=== PATIENT | female | born 1985 | race Caucasian/White ===

== ENCOUNTER 2018-06-16 00:37 | Emergency (ER) | payer BC ==
--- NOTE | 2018-06-16 00:45 | EDM.PDOC ---
ED HPI GENERAL MEDICAL PROBLEM - General Chief Complaint: Back Pain or Injury Stated Complaint: LOWER BACK PAIN Time Seen by Provider: 06/16/18 00:44 Source of Information: Reports: Patient - History of Present Illness INITIAL COMMENTS - FREE TEXT/NARRATIVE: 33 years old female patient presented with a chief complaint of low back pain started 5 days ago. Patient does not remember any trauma or injury but she said pain started after she had intercourse was her boyfriend and wonder if this is related. No previous history of back pain. Pain is worse with bending, twisting. No radiation. Denies any loss of control of urine or stool. Denies any weakness or numbness in her legs. Denies any fever. Denies any urinary symptom. As any blood in urine or stool. Denies any chest pain or shortness breath. She went to chiropractor yesterday and they adjusted her lower back but she still have pain. Has been taking ibuprofen 600 mg 3 or 4 times a day that seem to be helping to some extent also heat packs a seems to be helping a lot. Onset: Today back Pain Score (Numeric/FACES): 7 - Related Data Allergies Allergy/AdvReac Type Severity Reaction Status Date / Time No Known Allergies Allergy Verified 06/16/18 00:51 Home Meds: Home Meds Omeprazole 20 mg PO DAILY 06/16/18 [History] ED ROS GENERAL - Review of Systems Review Of Systems: ROS reveals no pertinent complaints other than HPI. ED EXAM,LOWER BACK PAIN/INJURY - Physical Exam Exam: See Below Exam Limited By: No Limitations General Appearance: Alert, No Apparent Distress Ears: Normal External Exam Nose: Normal Inspection Throat/Mouth: Normal Inspection Head: Atraumatic, Normocephalic Neck: Normal Inspection, Supple Respiratory/Chest: No Respiratory Distress, Lungs Clear, Normal Breath Sounds, No Accessory Muscle Use, Chest Non-Tender. No: Respiratory Distress Cardiovascular: Normal Peripheral Pulses, Regular Rate, Rhythm, No Edema, No Gallop, No JVD, No Murmur GI/Abdominal: Normal Bowel Sounds, Soft, Non-Tender, No Organomegaly, No Distention, No Abnormal Bruit, No Mass Back Exam: Normal Inspection, Decreased Range of Motion, Muscle Spasm, Paraspinal Tenderness. No: CVA Tenderness (R), CVA Tenderness (L), Vertebral Tenderness Extremities: Normal Inspection, Non-Tender, No Pedal Edema Neurological: Alert, Normal Mood/Affect, No Motor/Sensory Deficits, Oriented x 3 , Straight Leg Raise (L), Straight Leg Raise (R). No: Saddle Anesthesia Psychiatric: Normal Affect, Normal Mood Skin Exam: Warm, Dry, Intact, No Rash Course - Vital Signs Last Recorded V/S: Last Vital Signs Temp 36.4 C 06/16/18 00:49 Pulse 98 06/16/18 00:49 Resp 16 06/16/18 00:49 BP 147/77 H 06/16/18 00:49 Pulse Ox 100 06/16/18 00:49 - Orders/Labs/Meds Labs: Laboratory Tests 06/16/18 Range/Units 01:18 Urine HCG, Qual Negative Meds: Medications Discontinued Medications Generic Name Dose Route Start Last Admin Trade Name Spring PRN Reason Stop Dose Admin Cyclobenzaprine HCl 10 mg 06/16/18 01:34 06/16/18 01:43 Flexeril PO 06/16/18 01:35 10 mg ONETIME ONE Administration Ketorolac Tromethamine 60 mg 06/16/18 01:34 06/16/18 01:42 Toradol IM 06/16/18 01:35 60 mg ONETIME ONE Administration - Re-Assessments/Exams Free Text/Narrative Re-Assessment/Exam: 06/16/18 01:55 Patient was seen and examined shortly after arrival. Stable. Negative test. This is most likely muscle strain/sprain. Given 60 mg IM Toradol and 10 mg oral Flexeril.symptoms improved. Advised to follow up closely with her primary doctor, possible referral for physical therapy. Continue heat packs. Continue to alternate Tylenol and ibuprofen. Advised not to drive or O. Machines been taking Flexeril. MRI of lower back if symptom does not improve. Come back if symptom worsen. Patient agrees with the plan. Stable for discharge. Departure - Departure Time of Disposition: 01:57 Disposition: Home, Self-Care 01 Condition: Good Clinical Impression: Low back pain - Discharge Information Instructions: Muscle Strain, [id number], Back Pain, Adult, [id number] Referrals: PCP,None [Primary Care Provider] - Forms: ED Department Discharge - Assessment/Plan Plan: Advised to follow up closely with her primary doctor, possible referral for physical therapy. Continue heat packs. Continue to alternate Tylenol and ibuprofen. Advised not to drive or O. Machines been taking Flexeril. MRI of lower back if symptom does not improve. Come back if symptom worsen. Patient agrees with the plan. Stable for discharge.
[2018-06-16] MEDS ORDERED: Ketorolac 60 MG/2 ML SDV IM ONE (01:34)
[2018-06-16] MEDS ORDERED: Cyclobenzaprine 10 MG Tab PO ONE (01:34)
== END 2018-06-16 02:15 | disposition home or self-care (01) ==
LOC: JP.ED 00:37
DX: M54.5 Low back pain (principal); Z79.899 Other long term (current) drug therapy
CPT/HCPCS: 81025; 96372; 99284; A9270; J1885

== ENCOUNTER 2018-09-23 11:44 | Emergency (ER) | payer BC ==
[2018-09-23] MEDS ORDERED: Bacitracin Oint 1 GM U/D Packet TOP ONE (12:05)
[2018-09-23] MEDS ORDERED: Diphtheria,Pertussis(Acell),Tetanus Vaccine 0.5 ML SDV IM ONE (12:08)
--- NOTE | 2018-09-23 12:18 | EDM.PDOC ---
ED HPI GENERAL MEDICAL PROBLEM - General Chief Complaint: Laceration Stated Complaint: FISH HOOK IN FOOT Time Seen by Provider: 09/23/18 12:00 Source of Information: Reports: Patient, Family History Limitations: Reports: No Limitations - History of Present Illness INITIAL COMMENTS - FREE TEXT/NARRATIVE: 33-year-old female with a fish hook embedded in her right foot. It occurred this morning when she stepped on the hook. Onset: Sudden Duration: Hour(s): (Within the last few hours) Location: Reports: Lower Extremity, Right - Related Data Allergies Allergy/AdvReac Type Severity Reaction Status Date / Time No Known Allergies Allergy Verified 09/23/18 12:09 Home Meds: Home Meds Omeprazole 20 mg PO DAILY 06/16/18 [History] FLUoxetine [PROzac] 10 mg PO DAILY 09/23/18 [History] Past Medical History HEENT History: Reports: Impaired Vision Psychiatric History: Reports: Suicide Attempt Social & Family History - Caffeine Use Caffeine Use: Reports: Coffee, Energy Drinks ED ROS GENERAL - Review of Systems Review Of Systems: See Below Constitutional: Denies: Fever, Chills Respiratory: Denies: Shortness of Breath Psychiatric: Reports: Anxiety ED EXAM, SKIN/RASH Exam: See Below Exam Limited By: No Limitations General Appearance: Alert, No Apparent Distress Respiratory/Chest: No Respiratory Distress Extremities: Other (Exam is otherwise limited to the right foot. The patient has one pratik of a trouble hook embedded into the medial aspect of the right foot near the MP joint.) Course - Vital Signs Last Recorded V/S: Last Vital Signs Temp 97.0 F 09/23/18 12:11 Pulse 78 09/23/18 12:11 Resp 22 H 09/23/18 12:11 BP 140/84 09/23/18 12:11 Pulse Ox 97 09/23/18 12:11 - Orders/Labs/Meds Orders: Active Orders 24 hr Category Date Time Status Vaccines to be Administered [RC] PER UNIT ROUTINE Care 09/23/18 12:08 Active Meds: Medications Discontinued Medications Generic Name Dose Route Start Last Admin Trade Name Freq PRN Reason Stop Dose Admin Bacitracin 1 dose 09/23/18 12:05 09/23/18 12:23 Bacitracin Oint 1 Gm TOP 09/23/18 12:06 1 dose ONETIME ONE Administration Diphtheria/Tetanus/Acell Pertussis 0.5 ml 09/23/18 12:08 09/23/18 12:30 Adacel IM 09/23/18 12:09 0.5 ml .ONCE ONE Administration Lidocaine HCl 5 ml 09/23/18 12:05 09/23/18 12:23 Xylocaine-Mpf 1% INJECT 09/23/18 12:06 5 ml ONETIME ONE Administration - Re-Assessments/Exams Free Text/Narrative Re-Assessment/Exam: 09/23/18 12:17 The area was sterilized with alcohol, infiltrated with a small amount of 1% lidocaine and the hook removed with a needle solis. A small amount of bacitracin and a Band-Aid was applied and the patient given a tetanus booster. She'll keep the wound clean while healing. Departure - Departure Time of Disposition: 12:52 Disposition: Home, Self-Care 01 Condition: Good Clinical Impression: Foreign body in skin - Discharge Information Instructions: Puncture Wound, [id number] Referrals: Azucena Akhtar CNM [Primary Care Provider] - Forms: ED Department Discharge Care Plan Goals: Keep wound clean and covered while healing. Recheck if concerns of infection or not healing satisfactorily. - My Orders Last 24 Hours: My Active Orders 09/23/18 12:08 Vaccines to be Administered [RC] PER UNIT ROUTINE - Assessment/Plan Last 24 Hours: My Active Orders 09/23/18 12:08 Vaccines to be Administered [RC] PER UNIT ROUTINE
== END 2018-09-23 12:45 | disposition home or self-care (01) ==
LOC: JP.ED 11:44
DX: S90.851A Superficial foreign body, right foot, initial encounter (principal); Z23 Encounter for immunization; W45.8XXA Other foreign body or object entering through skin, initial encounter; Z79.899 Other long term (current) drug therapy
CPT/HCPCS: 90471; 90715; 99282; J2001

== ENCOUNTER 2020-06-21 13:59 | Inpatient (IN) | payer BC ==
[2020-06-21] MEDS ORDERED: Misoprostol 50 MCG (1/2 of 100 MCG) Tab PO ONE ×3 (18:23→22:45)
[2020-06-21] MEDS ORDERED: Calcium Carbonate 500 MG Tab.Chew PO PRN (18:29)
[2020-06-21] MEDS ORDERED: Sodium Chloride 0.9% 10 ML Syringe FLUSH PRN (18:29)
[2020-06-21] MEDS ORDERED: Ondansetron 4 MG/2 ML SDV IV PRN (18:29)
--- NOTE | 2020-06-21 18:40 | PCM.LDHP ---
L&D History of Present Illness - General Date of Service: 06/21/20 Admit Problem/Dx: Patient Status Order with Admit Dx/Problem 06/21/20 18:29 Patient Status [ADT] Routine Admission Diagnosis/Problem Admission Diagnosis/Problem Term Source of Information: Patient History Limitations: Reports: No Limitations - History of Present Illness Introduction:: 06/21/20 35 yo came in this afternoon with possible SROM at home. She noticed when she woke up at 0830 that her underwear were wet. There was no moisture in the be d and she did not have any leaking down her legs. Each time she went to the bathroom she felt more moist than normal but still never had to wear a pad all day. She came in this afternoon and had a positive AmniSure. Contractions have not been consistent but contractions have been every few minutes. She rates them mild and feels them in her upper abdomen and some in her low back. No pooling of fluid. SVE is 180/-1, same as clinic check. We have been doing expectant management per patient request through the afternoon. She would like to avoid pitocin. We discussed and she agrees to oral cytotec. Risk of infection reviewed with expectant management. Labs: B positive blood type, rubella immune, all STI negative, UDS negative today, GBS negative. Timing/Duration: Reports: minutes: (1-7) Location, : Reports: Abdomen, Lower back Severity: Mild Improves with: Reports: None Worsens with: Reports: None - Related Data Allergies/Adverse Reactions: Allergies Allergy/AdvReac Type Severity Reaction Status Date / Time No Known Allergies Allergy Verified 09/23/18 12:09 Home Medications: Home Meds Omeprazole 20 mg PO DAILY 06/16/18 [History] FLUoxetine [PROzac] 10 mg PO DAILY 09/23/18 [History] Pnv No.95/Ferrous Fum/Folic AC [ Caplet] 1 tab PO DAILY 06/21/20 [History] busPIRone [Buspar] 15 mg PO DAILY 06/21/20 [History] Past Medical History HEENT History: Reports: Impaired Vision PATTERN [employer]IC History: Reports: : 1 Para: 0 LMP (Approximate): Psychiatric History: Reports: Anxiety, Depression, PTSD, Suicide Attempt - Infectious Disease History Infectious Disease History: Reports: Chicken Pox, Shingles - Past Surgical History Other HEENT Surgeries/Procedures: wears glasses Social & Family History - Tobacco Use Tobacco Use Status *Q: Former Tobacco User Used Tobacco, but Quit: Yes Month/Year Tobacco Last Used: October 2019 Second Hand Smoke Exposure: Yes - Caffeine Use Caffeine Use: Reports: Coffee - Recreational Drug Use Recreational Drug Use: Yes Recreational Drug Type: Reports: Marijuana/Hashish Recreational Drug Use Frequency: Socially H&P Review of Systems - Review of Systems: Review Of Systems: See Below General: Reports: No Symptoms HEENT: Reports: No Symptoms Pulmonary: Reports: No Symptoms Cardiovascular: Reports: No Symptoms Gastrointestinal: Reports: No Symptoms Genitourinary: Reports: No Symptoms Musculoskeletal: Reports: No Symptoms Skin: Reports: No Symptoms Psychiatric: Reports: No Symptoms Neurological: Reports: No Symptoms Hematologic/Lymphatic: Reports: No Symptoms Immunologic: Reports: No Symptoms L&D Exam - Exam Exam: See Below - Vital Signs Vital Signs: Last Vital Signs Temp 36.3 C 06/21/20 16:20 Pulse 65 06/21/20 16:20 Resp 16 06/21/20 16:20 BP 124/74 06/21/20 16:20 Pulse Ox 99 06/21/20 14:20 Weight: 78 kg - OB Specific Contraction Duration (sec): 40-90 Contraction Frequency (min): 2-5 Contraction Intensity: Mild Movement: Active Heart Tones: Present Heart Tones per Min: 130 Heart Rate (FHR) Variability: Moderate (6-25 bmp) Presentation: Vertex - Green Score Green Score Cervix Position: Midposition Green Score Consistency: Medium Green Score Effacement: >80% Green Score Dilation: 1-2 cm Green Score 's Station: -1 ,0 Green Score Total: 8 - Exam General: Alert, Oriented HEENT: PERRLA, Conjunctiva Clear, EOMI, Hearing Intact, Mucosa Moist & [place], Nares Patent, Normal Nasal Septum, Pupils Equal, Pupils Reactive Neck: Supple, Trachea Midline Lungs: Clear to Auscultation, Normal Respiratory Effort Cardiovascular: Regular Rate, Regular Rhythm GI/Abdominal Exam: Normal Bowel Sounds, Soft, Non-Tender, No Organomegaly, No Distention, No Abnormal Bruit, No Mass, Pelvis Stable Rectal Exam: Normal Exam, Normal Rectal Tone Genitourinary: Normal external exam, Normal bimanual exam, Cervical dilitation. No: Vaginal bleeding Back Exam: Normal Inspection, Full Range of Motion Extremities: Normal Inspection, Normal Range of Motion, Non-Tender, No Pedal Edema, Normal Capillary Refill Skin: Warm, Dry, Intact Neurological: Cranial Nerves Intact, Reflexes Equal Bilateral Psychiatric: Alert, Normal Affect, Normal Mood - Patient Data Lab Results Last 24 hrs: Laboratory Results - last 24 hr 06/21/20 06/21/20 06/21/20 Range/Units 14:08 14:12 15:40 WBC (4.5-11.0) K/uL RBC (3.30-5.50) M/uL Hgb (12.0-15.0) g/dL Hct (36.0-48.0) % MCV (80-98) fL MCH (27-31) pg MCHC (32-36) % Plt Count (150-400) K/uL Neut % (Auto) (36-66) % Lymph % (Auto) (24-44) % [place] % (Auto) (2-6) % Eos % (Auto) (2-4) % Baso % (Auto) (0-1) % Urine Color Yellow (YELLOW) Urine Appearance Slightly cloudy A (CLEAR) Urine pH 6.5 (5.0-8.0) Ur Specific [place] 1.020 (1.008-1.030) Urine Protein Negative (NEGATIVE) mg/dL Urine Glucose (UA) Negative (NEGATIVE) mg/dL Urine Ketones 15 H (NEGATIVE) mg/dL Urine Occult Blood Negative (NEGATIVE) Urine Nitrite Negative (NEGATIVE) Urine Bilirubin Negative (NEGATIVE) Urine Urobilinogen 0.2 (0.2-1.0) EU/dL Ur Leukocyte Esterase Negative (NEGATIVE) Urine RBC 0-5 (0-5) Urine WBC 0-5 (0-5) Ur Epithelial Cells Many Amorphous Sediment Occasional Urine Bacteria Few Urine Mucus Occasional Membrane Rupture Positive H (NEGATIVE) Urine Opiates Screen Negative (NEGATIVE) Ur Oxycodone Screen Negative (NEGATIVE) Urine Methadone Screen Negative (NEGATIVE) Ur Propoxyphene Screen Negative (NEGATIVE) Ur Barbiturates Screen Negative (NEGATIVE) Ur Tricyclics Screen Negative (NEGATIVE) Ur Phencyclidine Scrn Negative (NEGATIVE) Ur Amphetamine Screen Negative (NEGATIVE) U Methamphetamines Scrn Negative (NEGATIVE) Urine MDMA Screen Negative (NEGATIVE) U Benzodiazepines Scrn Negative (NEGATIVE) U Cocaine Metab Screen Negative (NEGATIVE) U Marijuana (THC) Screen Negative (NEGATIVE) SARS CoV-2 RNA Rapid ALESIA 06/21/20 06/21/20 Range/Units 16:00 16:59 WBC 10.8 (4.5-11.0) K/uL RBC 3.89 (3.30-5.50) M/uL Hgb 12.5 (12.0-15.0) g/dL Hct 36.0 (36.0-48.0) % MCV 93 (80-98) fL MCH 32 H (27-31) pg MCHC 35 (32-36) % Plt Count 170 (150-400) K/uL Neut % (Auto) 70 H (36-66) % Lymph % (Auto) 18 L (24-44) % [place] % (Auto) 10 H (2-6) % Eos % (Auto) 1 L (2-4) % Baso % (Auto) 0 (0-1) % Urine Color (YELLOW) Urine Appearance (CLEAR) Urine pH (5.0-8.0) Ur Specific [place] (1.008-1.030) Urine Protein (NEGATIVE) mg/dL Urine Glucose (UA) (NEGATIVE) mg/dL Urine Ketones (NEGATIVE) mg/dL Urine Occult Blood (NEGATIVE) Urine Nitrite (NEGATIVE) Urine Bilirubin (NEGATIVE) Urine Urobilinogen (0.2-1.0) EU/dL Ur Leukocyte Esterase (NEGATIVE) Urine RBC (0-5) Urine WBC (0-5) Ur Epithelial Cells Amorphous Sediment Urine Bacteria Urine Mucus Membrane Rupture (NEGATIVE) Urine Opiates Screen (NEGATIVE) Ur Oxycodone Screen (NEGATIVE) Urine Methadone Screen (NEGATIVE) Ur Propoxyphene Screen (NEGATIVE) Ur Barbiturates Screen (NEGATIVE) Ur Tricyclics Screen (NEGATIVE) Ur Phencyclidine Scrn (NEGATIVE) Ur Amphetamine Screen (NEGATIVE) U Methamphetamines Scrn (NEGATIVE) Urine MDMA Screen (NEGATIVE) U Benzodiazepines Scrn (NEGATIVE) U Cocaine Metab Screen (NEGATIVE) U Marijuana (THC) Screen (NEGATIVE) SARS CoV-2 RNA Rapid ALESIA Negative Result Diagrams: 06/21/20 16:00 - Problem List (1) SROM (spontaneous rupture of membranes) SNOMED Code(s): 762677180 ICD Code: ABP2834 - Status: Acute Current Visit: Yes (2) Term SNOMED Code(s): 31511737 ICD Code: Z34.90 - ENCNTR FOR SUPRVSN OF NORMAL , UNSP, UNSP TRIMESTER Status: Acute Current Visit: Yes Problem List Initiated/Reviewed/Updated: Yes Orders Last 24hrs: Active Orders 24 hr Category Date Time Status Patient Status [ADT] Routine ADT 06/21/20 18:29 Ordered Communication Order [RC] ASDIRECTED Care 06/21/20 18:29 Ordered Heart Tones [RC] PER UNIT ROUTINE Care 06/21/20 18:29 Ordered Notify Provider Vital Signs [RC] PRN Care 06/21/20 18:31 Ordered Notify Provider [RC] PRN Care 06/21/20 18:29 Ordered OB Check [OM.PC] Click to Edit Care 06/21/20 14:07 Ordered Up ad Lexi [RC] ASDIRECTED Care 06/21/20 18:29 Ordered VTE/DVT Education [RC] Click to Edit Care 06/21/20 18:31 Ordered Vital Signs [RC] PER UNIT ROUTINE Care 06/21/20 18:29 Ordered Regular Diet [DIET] Diet 06/21/20 Dinner Ordered Calcium Carbonate [Tums] Med 06/21/20 18:29 Ordered 1,000 mg PO Q2HR PRN Ondansetron [Zofran] Med 06/21/20 18:29 Ordered 4 mg IV Q4H PRN Sodium Chloride 0.9% [Saline Flush] Med 06/21/20 18:29 Ordered 10 ml FLUSH ASDIRECTED PRN fentaNYL [Sublimaze] Med 06/21/20 18:29 Ordered 100 mcg IVPUSH Q1H PRN miSOPROStoL [Cytotec] Med 06/21/20 18:32 Once 50 mcg PO ONETIME ONE DVT/VTE Prophylaxis Reflex [OM.PC] Routine Oth 06/21/20 18:29 Ordered Saline Lock Insert [OM.PC] Routine Oth 06/21/20 18:29 Ordered Resuscitation Status Routine Resus Stat 06/21/20 18:29 Ordered Medication Orders Calcium Carbonate/Glycine (Tums) 1,000 mg PO Q2HR PRN PRN Reason: Indigestion Fentanyl (Sublimaze) 100 mcg IVPUSH Q1H PRN PRN Reason: Pain (moderate 4-6) Ondansetron HCl (Zofran) 4 mg IV Q4H PRN PRN Reason: Nausea/Vomiting Sodium Chloride (Saline Flush) 10 ml FLUSH ASDIRECTED PRN PRN Reason: Keep Vein Open Assessment/Plan Comment:: 06/21/20 Assessment: 35 yo here with prelabor SROM of clear fluid at home, scant fluid Contractions every 1-5 currently, mild in intensity Category 1 tracing SVE /-1 GBS negative Plan: Prelabor rupture of membranes, no onset of labor 11 hours later Cytotec 50 mcg orally now, will see how things go and possibly repeat 25-50 mcg in 4 hours Anticipate Patient desires medication free delivery if possible but is open to options if needed
[2020-06-22] MEDS: fentaNYL 100 MCG/2 ML SDV IVPUSH PRN ×2 (03:29→04:46)
[2020-06-22] MEDS ORDERED: Lidocaine 1% 50 ML MDV ONE (04:37)
[2020-06-22] MEDS ORDERED: Methylergonovine 0.2 MG/1 ML Amp ONE (04:44)
[2020-06-22] MEDS ORDERED: Misoprostol 200 MCG Tab ONE (04:44)
[2020-06-22] MEDS ORDERED: Carboprost Tromethamine 250 MCG/1 ML Amp ONE (04:44)
[2020-06-22] MEDS ORDERED: Benzocaine 20% Top Spray 56 GM Bottle TOP ONE (05:39)
[2020-06-22] MEDS ORDERED: Witch Hazel Medicated Pads 100/Jar TOP PRN (05:39)
[2020-06-22] MEDS ORDERED: Lanolin 100% Cream 40 GM Tube TOP ONE (05:39)
[2020-06-22] MEDS ORDERED: Misoprostol 25 MCG (1/4 of 100 MCG) Tab PO ONE (05:47)
[2020-06-22] MEDS ORDERED: Methylergonovine 0.2 MG/1 ML Amp IM ONE (05:48)
[2020-06-22] MEDS ORDERED: Lidocaine 1% 20 ML MDV INJECT ONE (05:48)
[2020-06-22] MEDS ORDERED: Ibuprofen 200 MG Tab, 24 Tab Bulk Bottle PO PRN (06:12)
[2020-06-22] MEDS ORDERED: Acetaminophen 325 MG Tab, 50 Tab Bulk Bottle PO PRN (06:12)
--- NOTE | 2020-06-22 06:12 | PCM.DEL ---
L & D Note - General Info Date of Service: 06/22/20 Mother's Due Date: 07/04/20 - Delivery Note Labor: Spontaneous Cervical Ripening Method: Misoprostil Delivery Outcome: Livebirth Delivery Method: Spontaneous Vaginal Delivery-Single Infant Delivery Mode: Spontaneous Presentation: Left Occiput Anterior (CORRINE) Nuchal Cord: None Anesthesia Type: Nitrous Oxide (briefly used, then IV fantanyl x 1) Anesthetic: Lidocaine (Xylocaine) 1% Plain Local Anesthetic Volume: Other (8 cc) Amniotic Fluid Description: Clear Episiotomy Type: None Laceration: 2nd Degree, Labial (right) Suture type: Vicryl Suture size: 3-0 Placenta: Spontaneous, Manual Removal, Abnormal Cord: 3 Vessels Estimated Blood Loss: 700 Resuscitation Needed: Yes : Suctioned, Bulb Syringe, Stimulated, Warmed, Warmer Used Provider: Ebonie Degroot Score 1 min: 3 Score 5 min: 5 Score 10 min: 7 Post Delivery Events: Hemorrhage, Retained Placenta (questionable) Second Stage Interventions: Reports: Second Nurse Assessed Progress of Descent, Second Nurse Reviewed Contraction Pattern, Second Nurse Reviewed Heart Tones, Encouragement Given, Pushing Effectively, Pushing, Pulls Own Legs Back Delivery Comments (Free Text/Narrative):: 06/22/20 35 yo now delivered baby girl on 06/22/20 at 0438 am. She came in yesterday afternoon with SROM with scant clear fluid, likely a forebag or high leak. She did not have spontaneous labor so after expectant management for several hours we decided to use oral cytotec to help induce labor. She did not make any change with the first dose of 50 mcg po, although did start having stronger contractions. 4 hours after first dose a dose of 25 mcg was given orally. She had SROM with a large gush of clear fluid at 0130 when she rapidly started changing after that. She used nitrous, the tub, and then at 4-5 cm around 0330 she received IV fentanyl. She quickly went to complete and began pushing. She delivered a female infant in CORRINE position. Baby initially cried and was placed on mother chest. She then had apnea but would respond to stimulation. The cord was clamped after 30 seconds and baby was brought to the warmer, mother trickling quite a bit of blood at this time. Baby was apneic, poor tone, and HR of 80 with no respiratory effort at that time, PPV was initiated for 1 minute. She then cried on her own and quickly had a HR over 100. She had blow by for several minutes. She is now on RA and has saturations >95%, skin pink, nice tone and is nursing at breast. Apgars 3, 5, 7. Baby did have dips in the HR with pushing but recovered, poor respiratory effort was likely due to the Fentanyl given just an hour before . Placenta delivered at 0442 and appeared not intact. The placenta is very thin and friable, several lobes are torn from the membrane at delivery. Mother was given IV pitocin directly after baby was born. She was given an additional dose of fentanyl due to not having an epidural and with clean sterile gloves a sweep of the uterus was done x 3 although was too clamped down to get to the fundus, this was done due to excessive bleeding of unknown cause. A couple of small fragments with blood clots were removed, there is nothing felt to be adhered. Upon good inspection of the placenta after mother was stable I do feel placenta lobes were intact, just torn from their place. There is a 3 vessel cord. Mother was given rectal cytotec and Methergine IM in addition to the pitocin for the bleeding. Mother has a second degree perineal laceration that is repaired along with a right labial tear that is repaired. There are no cervical or vaginal lacerations. The cause of bleeding is unknown, could have been small fragments of placenta vs clots by the cervix causing the bleeding. Placenta sent to pathology. EBL is 700 ml with a starting hgb of 12.5. Mother and baby are stable and snuggling skin to skin. Baby is nursing. Labs done on baby to check for infection. Lungs clear so no xray done. Stages of labor: 1: 8640-1332 2: 3863-4099 3: 5566-1379 Induction Criteria - Green Score Green Score Dilation: 1-2 cm Green Score Effacement: >80% Green Score 's Station: -1 ,0 Green Score Consistency: Medium Green Score Cervix Position: Midposition Green Score Total: 8 Green Score Presenting Part: Reports: Cephalic - Augmentation Estimated Pelvis: Reports: Adequate Weight Estimated:: Reports: AGA Estimated Weight if LGA: 3.175 kg Reassuring Monitoring Strip: Yes Absence of Tachy Systole: Yes - General Info Date of Service: 06/22/20 Functional Status: Reports: Pain Controlled - Review of Systems General: Reports: No Symptoms HEENT: Reports: No Symptoms Pulmonary: Reports: No Symptoms Cardiovascular: Reports: No Symptoms Gastrointestinal: Reports: No Symptoms Genitourinary: Reports: No Symptoms Musculoskeletal: Reports: No Symptoms Skin: Reports: No Symptoms Neurological: Reports: No Symptoms Psychiatric: Reports: No Symptoms - Patient Data Vitals - Most Recent: Last Vital Signs Temp 35.9 C L 06/22/20 03:08 Pulse 65 06/22/20 03:08 Resp 18 06/22/20 03:08 BP 116/62 06/22/20 03:08 Pulse Ox 99 06/22/20 03:20 Weight - Most Recent: 78 kg Lab Results Last 24 Hours: Laboratory Results - last 24 hr 06/21/20 06/21/20 06/21/20 Range/Units 14:08 14:12 15:40 WBC (4.5-11.0) K/uL RBC (3.30-5.50) M/uL Hgb (12.0-15.0) g/dL Hct (36.0-48.0) % MCV (80-98) fL MCH (27-31) pg MCHC (32-36) % Plt Count (150-400) K/uL Neut % (Auto) (36-66) % Lymph % (Auto) (24-44) % [place] % (Auto) (2-6) % Eos % (Auto) (2-4) % Baso % (Auto) (0-1) % Urine Color Yellow (YELLOW) Urine Appearance Slightly cloudy A (CLEAR) Urine pH 6.5 (5.0-8.0) Ur Specific [place] 1.020 (1.008-1.030) Urine Protein Negative (NEGATIVE) mg/dL Urine Glucose (UA) Negative (NEGATIVE) mg/dL Urine Ketones 15 H (NEGATIVE) mg/dL Urine Occult Blood Negative (NEGATIVE) Urine Nitrite Negative (NEGATIVE) Urine Bilirubin Negative (NEGATIVE) Urine Urobilinogen 0.2 (0.2-1.0) EU/dL Ur Leukocyte Esterase Negative (NEGATIVE) Urine RBC 0-5 (0-5) Urine WBC 0-5 (0-5) Ur Epithelial Cells Many Amorphous Sediment Occasional Urine Bacteria Few Urine Mucus Occasional Membrane Rupture Positive H (NEGATIVE) Urine Opiates Screen Negative (NEGATIVE) Ur Oxycodone Screen Negative (NEGATIVE) Urine Methadone Screen Negative (NEGATIVE) Ur Propoxyphene Screen Negative (NEGATIVE) Ur Barbiturates Screen Negative (NEGATIVE) Ur Tricyclics Screen Negative (NEGATIVE) Ur Phencyclidine Scrn Negative (NEGATIVE) Ur Amphetamine Screen Negative (NEGATIVE) U Methamphetamines Scrn Negative (NEGATIVE) Urine MDMA Screen Negative (NEGATIVE) U Benzodiazepines Scrn Negative (NEGATIVE) U Cocaine Metab Screen Negative (NEGATIVE) U Marijuana (THC) Screen Negative (NEGATIVE) SARS CoV-2 RNA Rapid ALESIA 06/21/20 06/21/20 Range/Units 16:00 16:59 WBC 10.8 (4.5-11.0) K/uL RBC 3.89 (3.30-5.50) M/uL Hgb 12.5 (12.0-15.0) g/dL Hct 36.0 (36.0-48.0) % MCV 93 (80-98) fL MCH 32 H (27-31) pg MCHC 35 (32-36) % Plt Count 170 (150-400) K/uL Neut % (Auto) 70 H (36-66) % Lymph % (Auto) 18 L (24-44) % [place] % (Auto) 10 H (2-6) % Eos % (Auto) 1 L (2-4) % Baso % (Auto) 0 (0-1) % Urine Color (YELLOW) Urine Appearance (CLEAR) Urine pH (5.0-8.0) Ur Specific [place] (1.008-1.030) Urine Protein (NEGATIVE) mg/dL Urine Glucose (UA) (NEGATIVE) mg/dL Urine Ketones (NEGATIVE) mg/dL Urine Occult Blood (NEGATIVE) Urine Nitrite (NEGATIVE) Urine Bilirubin (NEGATIVE) Urine Urobilinogen (0.2-1.0) EU/dL Ur Leukocyte Esterase (NEGATIVE) Urine RBC (0-5) Urine WBC (0-5) Ur Epithelial Cells Amorphous Sediment Urine Bacteria Urine Mucus Membrane Rupture (NEGATIVE) Urine Opiates Screen (NEGATIVE) Ur Oxycodone Screen (NEGATIVE) Urine Methadone Screen (NEGATIVE) Ur Propoxyphene Screen (NEGATIVE) Ur Barbiturates Screen (NEGATIVE) Ur Tricyclics Screen (NEGATIVE) Ur Phencyclidine Scrn (NEGATIVE) Ur Amphetamine Screen (NEGATIVE) U Methamphetamines Scrn (NEGATIVE) Urine MDMA Screen (NEGATIVE) U Benzodiazepines Scrn (NEGATIVE) U Cocaine Metab Screen (NEGATIVE) U Marijuana (THC) Screen (NEGATIVE) SARS CoV-2 RNA Rapid ALESIA Negative Med Orders - Current: Current Medications Calcium Carbonate/Glycine (Tums) 1,000 mg PO Q2H PRN PRN Reason: Indigestion Docusate Sodium (Colace) 100 mg PO BID PRN PRN Reason: Constipation Fentanyl (Sublimaze) 100 mcg IVPUSH Q1H PRN PRN Reason: Pain (moderate 4-6) Last Admin: 06/22/20 03:29 Dose: 100 mcg Documented by: Ferrous Sulfate (Ferrous Sulfate) 325 mg PO BID MILLER Lidocaine HCl (Xylocaine 1%) 8 ml INJECT ONETIME ONE Stop: 06/22/20 05:49 Methylergonovine Maleate (Methergine) 0.2 mg IM ONETIME ONE Stop: 06/22/20 05:49 Misoprostol (Cytotec) 800 mcg PO ONETIME ONE Stop: 06/22/20 05:48 Ondansetron HCl (Zofran) 4 mg IV Q4H PRN PRN Reason: Nausea/Vomiting Sodium Chloride (Saline Flush) 10 ml FLUSH ASDIRECTED PRN PRN Reason: Keep Vein Open Witeneida Lucas (Tucks) 1 pad TOP ASDIRECTED PRN PRN Reason: Other Discontinued Medications Benzocaine (Qhln-W-Pixmzql 20% [place]) 0 gm TOP ONETIME ONE Stop: 06/22/20 05:40 Carboprost Tromethamine (Hemabate Ds) Confirm Administered Dose 250 mcg .ROUTE .STK-MED ONE Stop: 06/22/20 04:45 Emollient Ointment (Lansinoh Hpa) 1 gm TOP ONETIME ONE Stop: 06/22/20 05:40 Oxytocin/Sodium Chloride (Pitocin In Ns 20 Units/1,000 Ml) Confirm Administered Dose 20 unit in 1,000 mls @ as directed .ROUTE .STK-MED ONE Stop: 06/22/20 03:39 Lidocaine HCl (Xylocaine 1%) Confirm Administered Dose 50 ml .ROUTE .STK-MED ONE Stop: 06/22/20 04:38 Methylergonovine Maleate (Methergine) Confirm Administered Dose 0.2 mg .ROUTE .STK-MED ONE Stop: 06/22/20 04:45 Misoprostol (Cytotec) 50 mcg PO ONETIME ONE Stop: 06/21/20 18:24 Last Admin: 06/21/20 18:40 Dose: 50 mcg Documented by: Misoprostol (Cytotec) 50 mcg PO ONETIME ONE Stop: 06/21/20 18:33 Last Admin: 06/21/20 18:59 Dose: Not Given Documented by: Misoprostol (Cytotec) 25 - 50 mcg PO ONETIME ONE Stop: 06/21/20 22:46 Last Admin: 06/21/20 22:49 Dose: 25 mcg Documented by: Misoprostol (Cytotec) Confirm Administered Dose 800 mcg .ROUTE .STK-MED ONE Stop: 06/22/20 04:45 - Exam General: Alert, Oriented HEENT: Pupils Equal, Pupils Reactive, EOMI, Mucous Membr. Moist/[place] Neck: Supple Lungs: Clear to Auscultation, Normal Respiratory Effort Cardiovascular: Regular Rate, Regular Rhythm GI/Abdominal Exam: Normal Bowel Sounds, Soft, No Distention, Pelvis Stable (Female) Exam: Normal External Exam, Normal Speculum Exam, Cervical Dilatation, Vaginal Bleeding Back Exam: Normal Inspection, Full Range of Motion Extremities: Normal Inspection, Normal Range of Motion, Non-Tender, No Pedal Edema, Normal Capillary Refill Skin: Warm, Dry, Intact Neurological: No New Focal Deficit Psy/Mental Status: Alert, Normal Affect, Normal Mood - Problem List & Annotations (1) SROM (spontaneous rupture of membranes) SNOMED Code(s): 347281465 Code(s): PVB3014 - Status: Acute Current Visit: Yes (2) Term SNOMED Code(s): 83887611 Code(s): Z34.90 - ENCNTR FOR SUPRVSN OF NORMAL , UNSP, UNSP TRIMESTER Status: Acute Current Visit: Yes (3) hemorrhage SNOMED Code(s): 45509892 Code(s): O72.1 - OTHER IMMEDIATE HEMORRHAGE Status: Acute Current Visit: Yes (4) Labial tear SNOMED Code(s): 768190800 Code(s): S31.41XA - LACERATION W/O FOREIGN BODY OF VAGINA AND VULVA, INIT ENCNTR Status: Acute Current Visit: Yes (5) Second degree perineal laceration SNOMED Code(s): 3243054 Code(s): O70.1 - SECOND DEGREE PERINEAL LACERATION DURING DELIVERY Status: Acute Current Visit: Yes (6) Vaginal delivery SNOMED Code(s): 138757862 Code(s): O80 - ENCOUNTER FOR FULL-TERM UNCOMPLICATED DELIVERY Status: Acute Current Visit: Yes (7) started SNOMED Code(s): 491896510 Code(s): CGS8227 - Status: Acute Current Visit: Yes - Problem List Review Problem List Initiated/Reviewed/Updated: Yes - My Orders Last 24 Hours: My Active Orders 06/21/20 14:07 OB Check [OM.PC] Click To Edit 06/21/20 Dinner Regular Diet [DIET] 06/21/20 18:29 Patient Status [ADT] Routine Communication Order [RC] ASDIRECTED Heart Tones [RC] PER UNIT ROUTINE Notify Provider [RC] PRN Up ad Lexi [RC] ASDIRECTED Vital Signs [RC] PER UNIT ROUTINE Calcium Carbonate [Tums] 1,000 mg PO Q2H PRN Ondansetron [Zofran] 4 mg IV Q4H PRN Sodium Chloride 0.9% [Saline Flush] 10 ml FLUSH ASDIRECTED PRN fentaNYL [Sublimaze] 100 mcg IVPUSH Q1H PRN DVT/VTE Prophylaxis Reflex [OM.PC] Routine Saline Lock Insert [OM.PC] Routine Resuscitation Status Routine 06/21/20 18:31 Notify Provider Vital Signs [RC] PRN VTE/DVT Education [RC] Click to Edit 06/22/20 03:08 Communication Order [RC] Per Unit Routine Communication Order [RC] Per Unit Routine Communication Order [RC] Per Unit Routine Communication Order [RC] Per Unit Routine Nitrous Oxide Delivery [RC] ASDIRECTED Oxygen Therapy [RC] ASDIRECTED Pulse Oximetry [RC] ASDIRECTED Verify Patient Consent Obtain [RC] ASDIRECTED Medication Discontinuation Instructions [OM.PC] Routine 06/22/20 05:39 Patient Status [ADT] Routine Vital Signs [RC] PFP Consult to Occupational Ther [CONS] Routine Docusate Sodium [Colace] 100 mg PO BID PRN witch Baldemar [Tucks] 1 pad TOP ASDIRECTED PRN Assess Lochia [WOMSER] Per Unit Routine Assess Uterine Involution [WOMSER] Per Unit Routine Perineal Care [OM.PC] Per Unit Routine Sitz Bath [OM.PC] Per Unit Routine 06/22/20 05:40 Ice Therapy [OM.PC] Per Unit Routine 06/22/20 05:47 miSOPROStoL [Cytotec] 800 mcg PO ONETIME ONE 06/22/20 05:48 Lidocaine 1% [Xylocaine 1%] 8 ml INJECT ONETIME ONE Methylergonovine [Methergine] 0.2 mg IM ONETIME ONE 06/22/20 09:00 Ferrous Sulfate 325 mg PO BID 06/22/20 16:00 CBC WITH AUTO DIFF [HEME] Routine - Assessment Assessment:: 06/22/20 35 yo with spontaneous vaginal delivery at 0438 at 38 2/7 weeks after cytotec given orally for prelabor ROM PPH with EBL 700 Starting hemoglobin 12.5 Second degree perineal and right labial tears repaired Placenta friable, possible fragments were removed (difficult to distinguish with blood clots) Manual removal of clots/fragments, no adhered placenta felt started Mother stable - Plan Plan:: 06/21/20 Assessment: 35 yo here with prelabor SROM of clear fluid at home, scant fluid Contractions every 1-5 currently, mild in intensity Category 1 tracing SVE 50/-1 GBS negative Plan: Prelabor rupture of membranes, no onset of labor 11 hours later Cytotec 50 mcg orally now, will see how things go and possibly repeat 25-50 mcg in 4 hours Anticipate Patient desires medication free delivery if possible but is open to options if needed 06/22/20 Routine pp cares support Hgb recheck this afternoon, iron ordered Monitor closely for bleeding Anticipate 24-48 hour stay
[2020-06-22] MEDS ORDERED: Benzocaine 20% Top Spray 56 GM Bottle TOP PRN (07:13)
[2020-06-22] MEDS ORDERED: Lanolin 100% Cream 40 GM Tube TOP PRN (07:15)
[2020-06-22] MEDS: Ferrous Sulfate 325 MG Tab PO SCH ×2 (09:25→20:09)
[2020-06-22] MEDS: Methylergonovine 0.2 MG Tab PO SCH ×2 (12:45→20:09)
[2020-06-22] MEDS: Docusate Sodium 100 MG Cap PO PRN (20:09)
[2020-06-23] MEDS: Methylergonovine 0.2 MG Tab PO SCH (01:57)
--- NOTE | 2020-06-23 09:20 | PCM.PNPP ---
- General Info Date of Service: 06/23/20 Functional Status: Reports: Pain Controlled - Review of Systems General: Reports: No Symptoms HEENT: Reports: No Symptoms Pulmonary: Reports: No Symptoms Cardiovascular: Reports: No Symptoms Gastrointestinal: Reports: No Symptoms Genitourinary: Reports: No Symptoms Musculoskeletal: Reports: No Symptoms Skin: Reports: No Symptoms Neurological: Reports: No Symptoms Psychiatric: Reports: No Symptoms - General Info Date of Service: 06/23/20 - Patient Data Vital Signs - Most Recent: Last Vital Signs Temp 36.0 C L 06/23/20 07:00 Pulse 77 06/23/20 07:00 Resp 16 06/23/20 07:00 BP 108/68 06/23/20 07:00 Pulse Ox 98 06/23/20 07:00 Weight - Most Recent: 78 kg Lab Results - Last 24 Hours: Laboratory Results - last 24 hr 06/22/20 06/23/20 Range/Units 16:49 04:40 WBC 14.2 H 15.7 H (4.5-11.0) K/uL RBC 3.44 3.88 (3.30-5.50) M/uL Hgb 11.1 L 12.4 (12.0-15.0) g/dL Hct 31.7 L 36.4 (36.0-48.0) % MCV 92 94 (80-98) fL MCH 32 H 32 H (27-31) pg MCHC 35 34 (32-36) % Plt Count 162 163 (150-400) K/uL Neut % (Auto) 76 H 74 H (36-66) % Lymph % (Auto) 12 L 13 L (24-44) % [place] % (Auto) 11 H 12 H (2-6) % Eos % (Auto) 1 L 1 L (2-4) % Baso % (Auto) 0 0 (0-1) % Med Orders - Current: Current Medications Acetaminophen (Tylenol Bulk Bottle) 0 mg PO Q4H PRN PRN Reason: Pain Last Admin: 06/22/20 06:26 Dose: 1 bottle Documented by: Benzocaine (Hpqc-Z-Lxoeatt 20% [place]) 0 gm TOP Q4H PRN PRN Reason: PAIN Calcium Carbonate/Glycine (Tums) 1,000 mg PO Q2H PRN PRN Reason: Indigestion Docusate Sodium (Colace) 100 mg PO BID PRN PRN Reason: Constipation Last Admin: 06/22/20 20:09 Dose: 100 mg Documented by: Emollient Ointment (Lansinoh Hpa) 1 gm TOP ASDIRECTED PRN PRN Reason: NIPPLE PAIN Ferrous Sulfate (Ferrous Sulfate) 325 mg PO BID MILLER Last Admin: 06/22/20 20:09 Dose: 325 mg Documented by: Oxytocin/Sodium Chloride (Pitocin In Ns 20 Units/1,000 Ml) 20 unit in 1,000 mls @ 999 mls/hr IV TITRATE [facility]; Protocol Last Admin: 06/22/20 05:54 Dose: 999 mls/hr, 999 mls/hr Documented by: Ibuprofen (Motrin Bulk Bottle) 600 mg PO Q6H PRN PRN Reason: Pain Last Admin: 06/22/20 06:25 Dose: 1 bottle Documented by: Ondansetron HCl (Zofran) 4 mg IV Q4H PRN PRN Reason: Nausea/Vomiting Sodium Chloride (Saline Flush) 10 ml FLUSH ASDIRECTED PRN PRN Reason: Keep Vein Open Witch Shayy (Tucks) 1 pad TOP ASDIRECTED PRN PRN Reason: Other Last Admin: 06/22/20 06:25 Dose: 1 pack Documented by: Discontinued Medications Benzocaine ([id number]-R-Lsizatb 20% [place]) 0 gm TOP ONETIME ONE Stop: 06/22/20 05:40 Last Admin: 06/22/20 06:25 Dose: 1 applic Documented by: Carboprost Tromethamine (Hemabate Ds) Confirm Administered Dose 250 mcg .ROUTE .STK-MED ONE Stop: 06/22/20 04:45 Last Admin: 06/22/20 05:52 Dose: Not Given Documented by: Emollient Ointment (Lansinoh Hpa) 1 gm TOP ONETIME ONE Stop: 06/22/20 05:40 Last Admin: 06/22/20 07:45 Dose: Not Given Documented by: Fentanyl (Sublimaze) 100 mcg IVPUSH Q1H PRN PRN Reason: Pain (moderate 4-6) Last Admin: 06/22/20 04:46 Dose: 100 mcg Documented by: Oxytocin/Sodium Chloride (Pitocin In Ns 20 Units/1,000 Ml) Confirm Administered Dose 20 unit in 1,000 mls @ as directed .ROUTE .STK-MED ONE Stop: 06/22/20 03:39 Last Admin: 06/22/20 06:22 Dose: Not Given Documented by: Lidocaine HCl (Xylocaine 1%) Confirm Administered Dose 50 ml .ROUTE .STK-MED ONE Stop: 06/22/20 04:38 Last Admin: 06/22/20 05:51 Dose: 8 ml Documented by: Lidocaine HCl (Xylocaine 1%) 8 ml INJECT ONETIME ONE Stop: 06/22/20 05:49 Last Admin: 06/22/20 06:23 Dose: Not Given Documented by: Methylergonovine Maleate (Methergine) Confirm Administered Dose 0.2 mg .ROUTE .STK-MED ONE Stop: 06/22/20 04:45 Last Admin: 06/22/20 04:54 Dose: 0.2 mg Documented by: Methylergonovine Maleate (Methergine) 0.2 mg IM ONETIME ONE Stop: 06/22/20 05:49 Last Admin: 06/22/20 06:23 Dose: Not Given Documented by: Methylergonovine Maleate (Methergine) 0.2 mg PO Q6H MILLER Stop: 06/23/20 01:01 Last Admin: 06/23/20 01:57 Dose: 0.2 mg Documented by: Misoprostol (Cytotec) 50 mcg PO ONETIME ONE Stop: 06/21/20 18:24 Last Admin: 06/21/20 18:40 Dose: 50 mcg Documented by: Misoprostol (Cytotec) 50 mcg PO ONETIME ONE Stop: 06/21/20 18:33 Last Admin: 06/21/20 18:59 Dose: Not Given Documented by: Misoprostol (Cytotec) 25 - 50 mcg PO ONETIME ONE Stop: 06/21/20 22:46 Last Admin: 06/21/20 22:49 Dose: 25 mcg Documented by: Misoprostol (Cytotec) Confirm Administered Dose 800 mcg .ROUTE .STK-MED ONE Stop: 06/22/20 04:45 Last Admin: 06/22/20 05:52 Dose: 800 mcg Documented by: Misoprostol (Cytotec) 800 mcg PO ONETIME ONE Stop: 06/22/20 05:48 Last Admin: 06/22/20 06:23 Dose: Not Given Documented by: - Interaction Infant Disposition, : [place] in Room with Family Infant Interaction: Holding Infant Feeding: Breastfed Infant; Nursed Well Support Person: - Recovery Exam Fundal Tone: Firm Fundal Level: 2 Fingerbreadths Below Umbilicus Fundal Placement: Midline Lochia Amount: Small Lochia Color: Rubra/Red Perineum Description: Intact, Minimal Bruising/Swelling Episiotomy/Laceration: Approximated Bladder Status: Voiding Urinary Elimination: Voided - Exam General: Alert, Oriented HEENT: Pupils Equal, Pupils Reactive, Mucous Membr. Moist/[place] Neck: Supple Lungs: Clear to Auscultation, Normal Respiratory Effort Cardiovascular: Regular Rate, Regular Rhythm GI/Abdominal Exam: Normal Bowel Sounds, Soft, Non-Tender, No Distention, Pelvis Stable Extremities: Normal Inspection, Normal Range of Motion, Non-Tender, No Pedal Edema, Normal Capillary Refill Skin: Warm, Dry, Intact Neurological: No New Focal Deficit Psy/Mental Status: Alert, Normal Affect, Normal Mood - Problem List & Annotations (1) SROM (spontaneous rupture of membranes) SNOMED Code(s): 664403278 Code(s): OMP3580 - Status: Acute Current Visit: Yes (2) Term SNOMED Code(s): 05046078 Code(s): Z34.90 - ENCNTR FOR SUPRVSN OF NORMAL , UNSP, UNSP TRIMESTER Status: Acute Current Visit: Yes (3) hemorrhage SNOMED Code(s): 47420979 Code(s): O72.1 - OTHER IMMEDIATE HEMORRHAGE Status: Acute Current Visit: Yes (4) Labial tear SNOMED Code(s): 432365508 Code(s): S31.41XA - LACERATION W/O FOREIGN BODY OF VAGINA AND VULVA, INIT ENCNTR Status: Acute Current Visit: Yes (5) Second degree perineal laceration SNOMED Code(s): 0519129 Code(s): O70.1 - SECOND DEGREE PERINEAL LACERATION DURING DELIVERY Status: Acute Current Visit: Yes (6) Vaginal delivery SNOMED Code(s): 774707003 Code(s): O80 - ENCOUNTER FOR FULL-TERM UNCOMPLICATED DELIVERY Status: Acute Current Visit: Yes (7) started SNOMED Code(s): 132279302 Code(s): GVY3022 - Status: Acute Current Visit: Yes - Problem List Review Problem List Initiated/Reviewed/Updated: Yes - My Orders Last 24 Hours: My Active Orders 06/22/20 09:00 Ferrous Sulfate 325 mg PO BID - Assessment Assessment:: 06/22/20 35 yo with spontaneous vaginal delivery at 0438 at 38 2/7 weeks after cytotec given orally for prelabor ROM PPH with EBL 700 Starting hemoglobin 12.5 Second degree perineal and right labial tears repaired Placenta friable, possible fragments were removed (difficult to distinguish with blood clots) Manual removal of clots/fragments, no adhered placenta felt started Mother stable 06/23/20 PP day 1, uncomplicated period FF and bleeding is light Hgb down to 11.1 yesterday but back to 12.4 today WBC 15.7, no s/s of infection going very well Mother feels great, AVSS Inspected perineum today, all sutures intact, bottom is approximated and healing as expected, not edematous today - Plan Plan:: 06/21/20 Assessment: 35 yo here with prelabor SROM of clear fluid at home, scant fluid Contractions every 1-5 currently, mild in intensity Category 1 tracing SVE /-1 GBS negative Plan: Prelabor rupture of membranes, no onset of labor 11 hours later Cytotec 50 mcg orally now, will see how things go and possibly repeat 25-50 mcg in 4 hours Anticipate Patient desires medication free delivery if possible but is open to options if needed 06/22/20 Routine pp cares support Hgb recheck this afternoon, iron ordered Monitor closely for bleeding Anticipate 24-48 hour stay 06/23/20 Routine cares and support Stop iron Recommended daily sitz baths for bottom to heal, no intercourse for 6 weeks 6 week check S/s of uterine infection taught to mother Discharge home today
[2020-06-23] MEDS: Docusate Sodium 100 MG Cap PO PRN (09:35)
[2020-06-23] MEDS: Ferrous Sulfate 325 MG Tab PO SCH (09:36)
== END 2020-06-23 11:00 | disposition home or self-care (01) | DRG 560 ==
LOC: JP.OBCHECK 13:59 → UNDOADMOB 14:00 → JP.OB 14:00 → INTOOBSV 06-22 04:36 → OBSVTOIN 06-22 04:36 → JP.OB 06-22 04:38 → OBSVTOIN 06-22 04:38 → JP.MS 06-22 13:13
PROVIDERS: ADMIT Advanced Practice Midwife; ATTEND Advanced Practice Midwife
PROC: 10E0XZZ Delivery of Products of Conception, External Approach (ICD-10-PCS; principal; 2020-06-22)
PROC: 3E0P7VZ Introduction of Hormone into Female Reproductive, Via Natural or Artificial Opening (ICD-10-PCS; 2020-06-22)
PROC: 0KQM0ZZ Repair Perineum Muscle, Open Approach (ICD-10-PCS; 2020-06-22)
DX: O99.344 Other mental disorders complicating childbirth (principal); O70.1 Second degree perineal laceration during delivery; Z87.891 Personal history of nicotine dependence; O72.1 Other immediate postpartum hemorrhage; Z20.822 Contact with and (suspected) exposure to COVID-19; Z37.0 Single live birth; Z3A.38 38 weeks gestation of pregnancy; F32.9 Major depressive disorder, single episode, unspecified; F41.9 Anxiety disorder, unspecified
CPT/HCPCS: 36415; 59409; 80305-QW; 81001; 84112; 85025; 88307; 99211; A9270-GY; J2001; J2210; J2590; J3010; U0002